=== PATIENT | female | born 1960 | race African-American/Black ===

== ENCOUNTER 2024-09-14 10:43 | Emergency (ER) | payer MEDICAID ==
[~2024-09-14] VITALS: Ht 170.2 cm; Wt 81.6 kg
[2024-09-14 10:49] VITALS: O2SAT 100
[2024-09-14 11:39] LABS: BASOPHILS % 0.7 % (0.0-2.0); EOSINOPHILS % 1.6 % (0.0-5.0); HEMATOCRIT. 39.2 % (36.0-48.0); HEMOGLOBIN. 13.2 g/dL (12.0-16.0); LYMPHOCYTES % 30.5 % (20.0-50.0); MEAN CORPUSCULAR HEMOGLOBIN 31.8 pg (28.0-32.0); MEAN CORPUSCULAR HGB CONC 33.5 g/dL (31.0-37.0); MEAN CORPUSCULAR VOLUME 94.8 fL (81.0-99.0); MEAN PLATELET VOLUME 11.4 fl (7.4-10.4); MONOCYTES % 8.5 % (2.0-8.0); NEUTROPHILS % 58.7 % (40.0-76.0); PLATELET 179 x1000/uL (130-400); RED BLOOD CELL COUNT 4.14 mill/uL (4.2-5.4); RED CELL DISTRIBUTION WIDTH 12.8 % (11.6-14.6); WHITE BLOOD COUNT 5.9 x1000/uL (4.5-11.0)
[2024-09-14 11:49] LABS: CARBON DIOXIDE 33 mEq/L (21-32); CHLORIDE 105 mEq/L (98-107); POTASSIUM 4.4 mEq/L (3.5-5.1); SODIUM 142 mEq/L (136-145)
[2024-09-14 11:50] LABS: CALCIUM 10.2 mg/dL (8.7-10.4)
[2024-09-14 11:54] LABS: GLUCOSE 119 mg/dL (70-105)
[2024-09-14] MEDS: ACETAMINOPHEN 325MG TABLET PO ONE (11:54)
[2024-09-14] MEDS: ONDANSETRON 4MG ODT PO ONE (11:54)
[2024-09-14 11:55] LABS: UREA NITROGEN BLOOD 7 mg/dL (9-23)
[2024-09-14 11:56] LABS: ALANINE AMINOTRANSFERASE 105 IU/L (10-49); ASPARTATE AMINOTRANSFERASE 71 IU/L (<34)
[2024-09-14 11:57] LABS: ALBUMIN 4.5 g/dL (3.2-4.8); BILIRUBIN DIRECT 0.2 mg/dL (<=3.0); BILIRUBIN TOTAL 0.7 mg/dL (0.1-1.0); PROTEIN TOTAL 7.9 g/dL (6.0-8.3)
[2024-09-14 12:06] LABS: CLARITY URINE CLEAR (CLEAR); COLOR URINE YELLOW (YELLOW); GLUCOSE URINE NEGATIVE (NEGATIVE); KETONES URINE NEGATIVE (NEGATIVE); LEUKOCYTE ESTERASE URINE TRACE (NEGATIVE); NITRITE URINE NEGATIVE (NEGATIVE); OCCULT BLOOD URINE NEGATIVE (NEGATIVE); PH URINE 6.5 (4.5-8.0); PROTEIN URINE NEGATIVE (NEGATIVE); SPECIFIC GRAVITY URINE 1.006 (1.005-1.030)
[2024-09-14 12:35] LABS: BACTERIA URINE NONE SEEN; RBC URINE NONE SEEN /hpf (0-2); SQUAMOUS EPITHELIAL CELL URINE RARE /lpf (RARE/1+)
[2024-09-14] MEDS ORDERED: ONDA-239 PO (13:58)
[2024-09-14] MEDS ORDERED: CEPH500C2 MT (13:58)
[2024-09-14 14:42] VITALS: BP 152/87; PULSE 60; RESP 18; TEMP 37.05852; O2SAT 99
== END 2024-09-14 14:47 | disposition home or self-care (01) ==
LOC: ER 10:43
DX: N39.0 Urinary tract infection, site not specified (principal); R11.2 Nausea with vomiting, unspecified
CPT/HCPCS: 99284; 80076; 80048; 81003; 83690; 85025; 36415; 93005; Q0162